=== PATIENT | male | born 1995 | race Caucasian/White ===

== ENCOUNTER 2020-05-16 00:38 | Outpatient (CLI) | payer OTHER, SELFPAY ==
--- NOTE | 2020-05-16 | DI.RAD_ITS ---
EXAM: XR KNEE LT 3V AP,LAT,BRITTA CLINICAL HISTORY: ARTHRITIS, PAIN,M13.80 TECHNIQUE: COMPARISON: No exams were available for comparison FINDINGS: Three views were obtained. No bony or soft tissue abnormality seen. Cartilaginous joint spaces of t he knee appear fairly well maintained. IMPRESSION: RADIATION DOSE DELIVERED: Total DLP
--- NOTE | 2020-05-16 | DI.RAD_ITS ---
EXAM: XR KNEE RT 3V AP,LAT,BRITTA CLINICAL HISTORY: ARTHRITIS, PAIN,M13.80 TECHNIQUE: COMPARISON: CR XR KNEE LT 3V AP,LAT,BRITTA from 05/16/2020 FINDINGS: Three views were obtained. Cartilaginous joint spaces appear fairly well maintained. No bony or sof t tissue abnormality seen. IMPRESSION: RADIATION DOSE DELIVERED: Total DLP
== END 2020-05-16 00:58 ==
PROVIDERS: Visit Provider Orthopaedic Surgery
DX: M25.562 Pain in left knee (principal); M25.561 Pain in right knee; M13.80 Other specified arthritis, unspecified site
CPT/HCPCS: 73562